=== PATIENT | female | born 1945 | race Caucasian/White ===

== ENCOUNTER 2018-03-28 11:04 | Emergency (ER) | payer MEDICARE, BC ==
[~2018-03-28 11:04] MED LIST: Sodium Chloride 0.9% 1,000 ML BAG ONE
[2018-03-28] MEDS ORDERED: Sodium Chloride 0.9% 100 ML ONE (11:47)
[2018-03-28] MEDS ORDERED: Clindamycin/D5W 600 mg/50 ml Premix Bag ONE (11:47)
[2018-03-28 12:37] LABS: ALT (SGPT) 14 U/L (8-55); AST (SGOT) 25 U/L (5-34); Albumin 3.7 g/dL (3.4-4.8); Alkaline Phosphatase 64 U/L (40-150); Anion Gap 13 mmol/L (10-20); BUN (Urea Nitrogen) 16 mg/dL (9.8-20.1); Bilirubin, Total 0.5 mg/dL (0.2-1.2); Calc. Creatinine Clearance 0 mL/min (70-130); Calcium 9.4 mg/dL (7.8-10.44); Carbon Dioxide 22 mmol/L (23-31); Chloride 105 mmol/L (98-107); Estimated GFR-MDRD 69; Globulin 3.1 g/dL (2.4-3.5); Glucose 135 mg/dL (83-110); Potassium 4.4 mmol/L (3.5-5.1); Protein, Total 6.8 g/dL (6.0-8.3); Sodium 136 mmol/L (136-145)
[2018-03-28 12:43] LABS: Hemoglobin 12.9 g/dL (12.0-16.0); Mean Corpuscular HGB CONC 33.2 g/dL (32.0-36.0); Mean Corpuscular Hemoglobin 31.3 pg (27.0-31.0); Mean Corpuscular Volume 94.4 fL (78.0-98.0); Mean Platelet Volume 8.6 fL (7.4-10.4); Platelet Count 128 thou/uL (130-400); RBC Distribution Width 12.1 % (11.5-14.5); White Blood Cell (WBC) Count 6.6 thou/uL (4.8-10.8)
[2018-03-28 12:55] LABS: Band 2 % (5-11); Lymphocytes 15 % (21-51); MDiff Complete? YES; Manual Diff?? YES; Monocytes 7 % (0-10); Neutrophil 76 % (42-75)
[2018-03-28 13:56] LABS: Bilirubin Negative (Negative); Blood, Urine Trace (Negative); Clarity Clear (Clear); Glucose, Urine (Dipstick) Negative (Negative); Leukocyte Negative (Negative); Nitrite Negative (Negative); Protein, Urine (Dipstick) Trace mg/dL (Neg-Trace); Urobilinogen 0.2 mg/dL (0.2-1.0); pH, Urine 6.5 (5.0-9.0)
[2018-03-28 14:01] LABS: Bacteria/HPF None Seen HPF (None Seen); RBC/HPF 0-3 HPF (0-3); Squamous Epithelial 0-3 HPF (0-3); WBC/HPF None Seen HPF (0-3)
== END 2018-03-28 14:00 | disposition short-term general hospital (02) ==
LOC: MADERS 11:04
DX: L03.113 Cellulitis of right upper limb (principal); I10 Essential (primary) hypertension; Z79.899 Other long term (current) drug therapy
CPT/HCPCS: 36415; 80053; 81003; 81015; 85025; 87040; 96365; 96366; J3490; J7050